=== PATIENT | male | born 1995 | race Caucasian/White ===

== ENCOUNTER → 2024-09-05 | Outpatient (CLI) | payer MEDICAID, SELFPAY ==
--- NOTE | 2024-09-05 | XR_ITS ---
Examination: Abdomen AP single view Technique: AP portable supine abdomen, single view Exam date and time: September 05, 2024 1251 hours INDICATIONS: Abdominal pain beginning 3 months ago. FINDINGS: Moderate stool throughout the colon No obstruction No free air No abnormal calcific densities IMPRESSION: No renal or ureteral calculi, no hydronephrosis
== END | disposition home or self-care (01) ==
LOC: CDIM 12:02
PROVIDERS: Referring Provider Surgery; Visit Provider Surgery
DX: R30.0 Dysuria (principal)
CPT/HCPCS: 74018